=== PATIENT | male | born 1980 | race Caucasian/White ===

== ENCOUNTER 2016-08-31 19:33 | Emergency (ER) | payer SELFPAY ==
[~2016-08-31] VITALS: Ht 160 cm; Wt 69.1 kg
[~2016-08-31 19:33] MED LIST: NO HOME MEDS
--- OUTSIDE RECORDS SUMMARY | 2016-08-31 19:38 | XMS REPORT | Continuity of Care Document ---
Author Author [facility] Organization [facility] Address Unknown Phone Unavailable Support Name Relationship Address Phone MAY, LINDEN Solis DO Caregiver [address] [place] [address] Unavailable BAUTISTA MICHELLE Next Of Kin [address] [place] [address] Insurance Providers Guarantor Camilo Hood Address [address] [place] [address] Email DENIED/NO TO PT [place] Payer Self Pay Subscriber's Name Camilo Hood Relationship 18 Self Advance Directives Directive Response Recorded Date/Time Advanced Directives Type None 03/15/16 11:40pm Chief Complaint and Reason for Visit Chief Complaint Back Pain or Injury Reason for Visit [id number] Problems Active Problems Medical Problem Onset Date Status Infraspinatus strain Unknown Acute Lumbar strain Unknown Acute Past Problems Medical Problem Onset Date Back sprain Unknown Medications Current Home Medications Medication Dose Units Route Directions Days Qty Instructions Start Date No Home Meds 03/16/16 Past Home Medications Medication Directions Ordered Status Cyclobenzaprine Hcl 10 Mg Tablet, 1 Tab Oral Three Times A Day for Muscle Pain 11/16/15 Discontinued Ibuprofen 200 Mg Tablet, 800 Mg Oral Every 8 Hours as needed for Pain Discontinued Meloxicam 15 Mg Tablet, 15 Mg Oral Daily 11/16/15 Discontinued Methocarbamol (Robaxin) 500 Mg Tablet, 500 Mg Oral Every 6 Hr Prn 03/16/16 Discontinued Social History Social History Problem Response Recorded Date/Time Onset Date Status Hx Substance Use No 03/16/2016 12:32am Not Applicable Not Applicable Hx Alcohol Use Y on occasion 03/16/2016 12:32am Not Applicable Not Applicable Has the pt used tobacco in the last 12 months Yes 10/19/2012 12:23am Not Applicable Not Applicable Tobacco Usage none 10/07/2015 12:28am Not Applicable Not Applicable Query Response Start Date Stop Date Smoking Status Current every day smoker Hospital Discharge Instructions No hospital discharge instructions. Plan of Care Discharge Date 03/16/16 12:49am Disposition 01 DISCHARGED HOME, SELF-CARE Condition at Discharge Improved Instructions/Education Provided Low Back Pain Prescriptions See Medication Section Referrals Your physician Order Date: 1 Week Note: Additional Instructions/Education Use ibuprofen, tylenol, and heat to help with your back pain. Continue to stretch your back to, but not through, your pain. Use the muscle relaxers to help with your pain and your stretching. Follow up with your doctor for chronic management of your back pain. Care Plan and Goals Physician Care Plan Problem: Lumbar strain Goal: Follow up with primary care provider Instructions: Take medications and follow care plan as discussed/written Functional Status No functional status results. Allergies, Adverse Reactions, Alerts No known allergies. Immunizations Query Response on File Recorded Date/Time Hx Influenza Vaccination No 08/20/13 1:40pm Hx Pneumococcal Vaccination No 08/20/13 1:40pm Hx Tetanus, Diptheria, Pertussis no open area 08/20/13 1:40pm Hx Influenza Vaccination No 08/20/13 1:40pm Hx Tetanus, Diptheria, Pertussis no open area 08/20/13 1:40pm Influenza Vaccine Hx NO 03/16/16 12:32am Tetanus Diptheria Vaccine History 8 YEARS AGO 03/16/16 12:32am Tdap Vaccine Hx 2008 10/07/15 12:05am Vital Signs Acute Vital Signs Vital Response Date/Time Temperature (Fahrenheit) 98.2 deg F (96.8 - 99.1) 03/15/2016 11:40pm Temperature (Calculated Celsius) 36.88412 degrees C (36.0 - 37.3) 03/15/2016 11:40pm Pulse Rate (adult) 96 bpm (60 - 100) 03/16/2016 12:49am Respiratory Rate 16 breaths/min (10 - 20) 03/16/2016 12:49am O2 Sat by Pulse Oximetry 95 % (90 - 100) 03/16/2016 12:49am Blood Pressure 133/77 mm Hg 03/16/2016 12:49am Height (Feet) 5 feet 03/15/2016 11:40pm Height (Inches) 3.00 inches 03/15/2016 11:40pm Weight (Kilograms) 68.700 kg 03/15/2016 11:40pm Body Mass Index (BMI) 26.0 03/15/2016 11:40pm Results No known relevant diagnostic tests, laboratory data and/or discharge summary. Procedures No known history of procedures. Encounters Encounter Location Arrival/Admit Date Discharge/Depart Date Attending Provider Registered Emergency Room [facility] 03/15/16 11:23pm LINDEN GARCIA DO Recent Diagnosis
[2016-08-31 19:45] VITALS: Ht 160 cm; Wt 69.1 kg
[2016-08-31] MEDS ORDERED: KETOROLAC 30mg/ml INJECTION IV ONE (19:45)
[2016-08-31] MEDS ORDERED: PROCHLORPERAZINE 10mg/2ml INJECTION IV ONE (19:45)
[2016-08-31] MEDS ORDERED: NORMAL SALINE 1,000 ML IV ONE (19:45)
--- NOTE | 2016-08-31 19:49 | ERPDOC ---
Departure Disposition Decision Date: Aug 31, 2016 Disposition Decision Time: 20:43 Disposition: 01 DISCHARGED HOME, SELF-CARE Impression Impression Impression: Primary Impression: Viral gastroenteritis Severity: Moderate Condition: Improved Seen By: Physician only Patient Instructions: Gastroenteritis (ED) Problems/Meds/Labs Reviewed?: Yes Medications reviewed and manag: Yes Additional Instructions: Reglan 10 mg one tablet 4 times daily as needed for nausea/cramps May use Tylenol up to 1000 mg and/or ibuprofen up to 600 mg 4 times daily as needed for fever or pain Drink at least 2-3 quarts of fluid daily Follow up care ordered?: Yes Mental Status: Alert Scripts Metoclopramide HCl (Reglan) 10 Mg Tablet 10 MG PO QID Y for n/v/cramps, #30 TAB 0 Refills Prov: RAYA LEVINE MD 08/31/16 HPI - Abdominal Pain General Chief Complaint: Nausea,Vomiting,Diarrhea Stated Complaint: VOMITING/FEVER Time Seen by Provider: 19:42 Source: patient, family History/Exam Limitations: no limitations HPI - Abdominal Pain Initial Comments 6 AM the patient began vomiting, having diarrhea, with fevers, chills, mild cough and body aches. Patient took Zofran earlier in the day, but was unable to take any fluids. Occurred At: home Onset: Rapid Duration: 12-24 hrs Associated Symptoms: fatigue, fever/chills, headache, nausea/vomiting, weakness , DENIES: back pain, chest pain, diaphoresis, heartburn, rash, shortness of breath, swelling/mass in abdomen, syncope Hx of Similar Symptoms: No Allergies: Coded Allergies: prochlorperazine (Verified Adverse Reaction, Intermediate, DYSTONIA, ) Past History Past Medical History Musculoskeletal: back pain Surgical History General: appendix Family History Family PMH: FOUND: [place] Vaccines Hx Influenza Vaccination: No Hx Pneumococcal Vaccination: No Social History Smoking Status: Never smoker Does patient use chewing tobac: No Second Hand Exposure: No Substance Use Type: does not use Alcohol Intake: none Record Review Pertinent history updated: Yes Review of Systems Constitutional Constitutional: DENIES: appetite decrease, appetite increase, chills, dizziness , fever, weakness ENMT Ears: DENIES: pain Hearing: DENIES: hearing loss, tinnitus Balance: DENIES: vertigo Mouth/Throat: DENIES: change in swallowing, change in voice, hoarsness, painful swallowing, sore throat Cardiovascular Cardiac: DENIES: chest pain, dyspnea on exertion Rhythm/Rate: DENIES: irregular beat, palpitations, tachycardia Vascular: DENIES: pedal edema Pulmonary Respiratory: DENIES: cough, dyspnea, pleuritic chest pain GI Upper Abdomen: DENIES: dysphagia, heartburn/indigestion, nausea, pain, vomiting Lower Abdomen: DENIES: blood in stool, constipation, diarrhea, pain General: DENIES: burning, dysuria, frequency, pain, urgency Musculoskeletal General: pain (persistent low back pain, chronic), tenderness, DENIES: atrophy of muscles, cramps, gout, joint pain, joint swelling, spasm, weakness Integumentary Skin: DENIES: rash, sores Neurological General: DENIES: headache, numbness, tingling, vertigo, weakness Psychiatric Psychiatric: DENIES: anxiety, depression, nervousness Physical Exam General General Nourishment: well nourished, well developed, appears stated age General Body Habitus: well groomed Vitals and Pain First Documented Vital Signs Date Time Temp Pulse Resp B/P Pulse Ox O2 Delivery O2 Flow Rate FiO2 08/31/16 19:45 100.5 110 23 132/77 96 Room Air Weight: Kilograms: Height (feet): 5 Height (inches): 3.00 Triage Pain Scale: RN VS reviewed by Provider: Yes Normal Exams: Head: Normocephalic w/o trauma Eyes: Pupils are PERRLA w/ EOMI, No scleral icterus, irritation, or foreign bodies noted ENMT: No facial trauma, nasal exudates, pharyngeal erythema, or exudates are noted Neck: Full range of motion, without adenopathy, JVD, bruits or thyromegaly Chest/Resp: Clear all [place], with good airflow, and symmetry bilaterally CV: Regular rate and rhythm, without murmur or gallop, Pulses 2+ all extremities, capillary refill, <2 seconds all ext., no pedal edema noted Lymphatic: No lymphadenopathy, or lymphedema noted Musculoskeletal: No tenderness, or deformity noted, good range of motion, all extremities Integumentary: No rashes, hives, or bruising noted, hair and nails, without abnormality Neurologic: Patient is alert, and oriented, cranial nerves, motor/sensory/ cerebellar, exams w/o gross deficits, to observation Psychiatric: Patient exhibits, appropriate attention, emotion and affect Respiratory (brief) Respiratory: FOUND: clear all [place], equal bilaterally, symmetrical, NOT FOUND : rales, tenderness, wheezes Cardiovascular (brief) Cardiac: FOUND: regular rate, regular rhythm, NOT FOUND: pedal edema Capillary Refill: <2 sec Pulses: all distal extremities, equal, strong Abdomen (brief) Abdominal Brief: FOUND: soft, NOT FOUND: bowel normo active x4 (decreased, but positive throughout), distended, hepatosplenomegaly, pulsatile mass, tender Progress Results/Orders Orders Procedure Category Date Status Time Iv Lock (Ed Only) EDM 08/31/16 Transmitted 19:44 Cbc W/Auto LAB 08/31/16 Complete Diff-Reflex Manual Cmp - Comprehensive LAB 08/31/16 Complete Metabolic Lipase LAB 08/31/16 Complete Normal Saline (Normal PHA 08/31/16 Complete Saline Iv) 19:45 Prochlorperazine PHA 08/31/16 Complete (Compazine) 19:45 Ketorolac (Toradol) PHA 08/31/16 Complete 19:45 Diphenhydramine PHA 08/31/16 Complete (Benadryl) 20:30 Lab Results Laboratory Tests Test 08/31/16 19:56 White Blood Count 17.8T/MM3 Red Blood Count 5.51M/MM3 Hemoglobin 17.0GM/DL Hematocrit 48.8% Mean Corpuscular Volume 88.6UM3 Mean Corpuscular Hemoglobin 30.9UUG Mean Corpuscular Hemoglobin Concent 34.8GM/DL RDW Standard Deviation 43.4FL Platelet Count 389T/MM3 Mean Platelet Volume 9.3UM3 Immature Granulocyte % (Auto) % Neutrophils (%) (Auto) % Lymphocytes (%) (Auto) % Monocytes (%) (Auto) % Eosinophils (%) (Auto) % Basophils (%) (Auto) % Absolute Immature Granulocyte (auto T/MM3 Absolute Neutrophils (auto) T/MM3 Absolute Lymphocytes (auto) T/MM3 Absolute Monocytes (auto) T/MM3 Absolute Eosinophils (auto) T/MM3 Absolute Basophils (auto) T/MM3 Neutrophils % (Manual) 85.0% Band Neutrophils % 1.0% Lymphocytes % (Manual) 9.0% Monocytes % (Manual) 4.0% Eosinophils % (Manual) 1.0% Absolute Neutrophils (Manual) 15.1T/MM3 Band Neutrophils # 0.2T/MM3 Lymphocytes # (Manual) 1.6T/MM3 Monocytes # (Manual) 0.7T/MM3 Eosinophils # (Manual) 0.2T/MM3 Red Cell Morphology Comment Normal Turbidity < 20 Sodium Level 142MEQ/L Potassium Level 3.6MEQ/L Chloride Level 104MEQ/L Carbon Dioxide Level 25MEQ/L Anion Gap 13MEQ/L Blood Urea Nitrogen 18.0MG/DL Creatinine 0.9MG/DL Glomerular Filtration Rate Calc 96 BUN/Creatinine Ratio 20RATIO Glucose Level 116MG/DL Calculated Osmolality 276MOSM/KG Calcium Level 9.0MG/DL Total Bilirubin 1.00MG/DL Icterus Index < 2 Aspartate Amino Transf (AST/SGOT) 22U/L Alanine Aminotransferase (ALT/SGPT) 32U/L Alkaline Phosphatase 130U/L Total Protein 7.6G/DL Albumin 4.3G/DL Globulin 3.3G/DL Albumin/Globulin Ratio 1.3RATIO Lipase 54U/L Chemistry Specimen Hemolysis < 15 Medications Current ED Medications Sodium Chloride (Normal Saline IV) 1,000 ml @ 0 mls/hr Q0M ONCE IV Last administered on 08/31/16 20:03; Start 08/31/16 at 19:45; Stop 08/31/16 at 19:46 ; Status DC Prochlorperazine Edisylate (Compazine) 10 mg O ONCE IV Last administered on 20:05; Start 08/31/16 at 19:45; Stop 08/31/16 at 19:46; Status DC Ketorolac Tromethamine (Toradol) 30 mg O ONCE IV Last administered on 20:07; Start 08/31/16 at 19:45; Stop 08/31/16 at 19:46; Status DC Diphenhydramine HCl (Benadryl) 25 mg O ONCE IV Last administered on 08/31/16 20:19; Start 08/31/16 at 20:30; Stop 08/31/16 at 20:31; Status DC Progress Progress Patient given 1 L normal saline IV fluid bolus, Compazine 10 mg IV, Toradol 30 mg IV - Pt had mild akathisia, given 25 mg Benadryl to complete resolution of symptoms. CBC - mild elevated white cell count, no left shift CMP/L - normal LEVINE,RAYA MD Aug 31, 2016 19:49
[2016-08-31 20:03] LABS: HCT - HEMATOCRIT 48.8 % (41-53); MEAN CORPUSCULAR HGB 30.9 UUG (26-34); MEAN CORPUSCULAR HGB CONC(MCHC 34.8 GM/DL (31-37); MEAN CORPUSCULAR VOLUME 88.6 UM3 (80-100); MEAN PLATELET VOLUME 9.3 UM3 (9.4-12.4); RED BLOOD COUNT 5.51 M/MM3 (4.50-5.90); WBC - WHITE BLOOD COUNT 17.8 T/MM3 (4.5-11.0)
[2016-08-31 20:15] LABS: ALBUMIN 4.3 G/DL (3.5-5.0); ALBUMIN/GLOBULIN RATIO 1.3 RATIO (1.1-2.2); ALKALINE PHOSPHATASE 130 U/L (38-126); ALT (SGPT) 32 U/L (21-72); ANION GAP 13 MEQ/L (5-15); AST (SGOT) 22 U/L (17-59); BUN/CREATININE RATIO 20 RATIO (6-26); CHLORIDE 104 MEQ/L (98-107); CO2 - CARBON DIOXIDE 25 MEQ/L (22-30); CREATININE 0.9 MG/DL (0.8-1.5); GLOMERULAR FILTRATION RATE 96; GLUCOSE 116 MG/DL (75-110); LIPASE 54 U/L (23-300); POTASSIUM 3.6 MEQ/L (3.6-5); SODIUM 142 MEQ/L (134-144); TOTAL PROTEIN 7.6 G/DL (6.3-8.2)
--- NOTE | 2016-08-31 20:15 | NUR ---
REASSESSMENT PT'S APPROACHED RN AND STATES, "I THINK HE'S HAVING A REACTION TO THE MEDICATION." PT FOUND SITTING ON STRETCHER, WITH GOWN AND SHIRT OFF, SLIGHTLY DIAPHORETIC, AND ANXIOUS. PT STATES, "I DON'T FEEL RIGHT." NO HIVES, RASH, OR ANGIOEDEMA NOTED. PHYSICIAN NOTIFIED.
[2016-08-31] MEDS ORDERED: DiphenhydrAMINE 50 MG/ML INJECTION IV ONE (20:30)
--- NOTE | 2016-08-31 20:32 | NUR ---
REASSESSMENT PT NOTED TO BE MORE CALM, WITH GOWN REAPPLIED. PT REPORTS GOOD RESOLUTION OF SYMPTOMS WITH MEDICATION ADMINISTRATION. WILL CONTINUE TO MONITOR.
[2016-08-31 20:34] LABS: BAND NEUTROPHILS # 0.2 T/MM3; EOSINOPHILS # (MANUAL) 0.2 T/MM3 (0-0.5); LYMPHOCYTES # (MANUAL) 1.6 T/MM3 (1-4.8); MONOCYTES # (MANUAL) 0.7 T/MM3 (0-0.8); NEUTROPHILS #(MANUAL)-ABSOLUTE 15.1 T/MM3 (1.8-7.7); TOTAL CELLS COUNTED 100 %
[2016-08-31] MEDS ORDERED: METO-230 PO (20:44)
[2016-08-31 20:49] VITALS: BP 119/63; PULSE 95; RESP 19; TEMP 99.4; O2SAT 96
--- NOTE | 2016-08-31 21:02 | NUR ---
DEPARTURE PT COLLECTED BELONGINGS AND AMBULATED INDEPENDENTLY TO EXIT WITH SPOUSE, GAIT STEADY.
== END 2016-08-31 21:02 | disposition home or self-care (01) ==
LOC: ED 19:33
DX: A08.4 Viral intestinal infection, unspecified (principal)
CPT/HCPCS: 80053; 83690; 85025